=== PATIENT | female | born 1945 | race African-American/Black ===

== ENCOUNTER 2024-05-26 21:43 | Emergency (ER) | payer SELFPAY ==
[~2024-05-26] VITALS: Ht 160 cm; Wt 75.0 kg
[2024-05-26 21:51] VITALS: BP 133/63; PULSE 64; RESP 18; O2SAT 99
[2024-05-26] MEDS ORDERED: TOPUD PO (22:53)
[2024-05-26 23:13] VITALS: TEMP 98
[2024-05-26] MEDS: ACETAMINOPHEN 325MG TABLET PO ONE (23:13)
== END 2024-05-26 23:13 | disposition home or self-care (01) ==
LOC: ER 21:43
DX: S90.32XA Contusion of left foot, initial encounter (principal); F19.90 Other psychoactive substance use, unspecified, uncomplicated; Z90.710 Acquired absence of both cervix and uterus; W01.0XXA Fall on same level from slipping, tripping and stumbling without subsequent striking against object, initial encounter; Y93.89 Activity, other specified; Y92.89 Other specified places as the place of occurrence of the external cause; Y99.8 Other external cause status
CPT/HCPCS: 73590; 73630; 99284; Z7610